=== PATIENT | female | born 2000 | race Caucasian/White ===

== ENCOUNTER 2018-01-26 22:20 | Emergency (ER) | payer OTHER, SELFPAY ==
[2018-01-26 22:22] VITALS: BP 136/90; PULSE 125; RESP 16; TEMP 36.9; O2SAT 97; BMI 21.8
--- NOTE | 2018-01-26 22:29 | EKG12_ITS ---
Test Reason : SUBSTANCE ABUSE Blood Pressure : / mmHG Vent. Rate : 107 BPM Atrial Rate : 107 BPM P-R Int : 124 ms QRS Dur : 068 ms QT Int : 336 ms P-R-T Axes : 067 078 016 degrees QTc Int : 448 ms Sinus tachycardia Otherwise normal ECG Confirmed by ОЛЬГА REAVES, YOUSIF ([id number]), desk editor [id number] ([id number] on 01/28/2018 1:31:46 PM Referred By: Confirmed By:YOUSIF ROLON MD
[2018-01-26 22:35] VITALS: PULSE 122; RESP 18; O2SAT 100
--- NOTE | 2018-01-26 22:56 | ED.VISSUMM ---
- ER Visit Summary Date of Service: 01/26/18 Chief Complaint: Dizziness History of Present Illness: The patient is a 17 F presenting with dizziness. Patient ate half of a marijuana cookie prior to arrival. She believes that there was something else laced in the cookie. She does not know what substance was also in the cookie. She states she started to have dizziness. She had no syncope. She states her symptoms are now almost completely resolved. Physical Examination: Vitals are stable. Patient is afebrile. Alert no acute distress. HEENT exam is unremarkable. Neck is supple. Lungs are clear and equal bilaterally. Heart is regular rate and rhythm. Abdomen is soft nontender nondistended. Extremities are unremarkable. Skin is warm and dry. No focal neurologic deficit. Remainder of exam is unremarkable. Emergency Department Course and Treatment: EKG is sinus rate of 107. Patient states her symptoms are resolving. She is advised to avoid marijuana cookies. Advised to follow with primary care physician. Advised return to the ED if worsening complaints. Disposition: Discharge home Impression: Marijuana use This note was generated with [employer] dictation software. It may contain incorrect words, spelling, and punctuation that were not noted in review of the chart prior to signing ED Disposition - Plan for ED Patient: Chief Complaint: Substance Abuse Referrals: Care Physician,No Primary [Primary Care Provider] -
--- NOTE | 2018-01-26 22:59 | ED.DEP ---
ED Disposition - Plan for ED Patient: Chief Complaint: Substance Abuse Instructions: ED Drug Abuse General Referrals: Care Physician,No Primary [Primary Care Provider] -
[2018-01-26 23:47] VITALS: BP 129/75; PULSE 105; RESP 16; O2SAT 100
== END 2018-01-26 23:50 | disposition home or self-care (01) ==
LOC: ED 22:50
PROVIDERS: Emergency Provider Emergency Medicine
DX: F12.10 Cannabis abuse, uncomplicated (principal); R42 Dizziness and giddiness; F41.9 Anxiety disorder, unspecified; Z79.899 Other long term (current) drug therapy
CPT/HCPCS: 93005; 99282